=== PATIENT | male | born 1960 | race Caucasian/White ===

== ENCOUNTER 2022-03-30 12:24 | Emergency (ER) | payer MEDICAID ==
[~2022-03-30] VITALS: Ht 175.3 cm; Wt 88.0 kg
[2022-03-30 13:19] VITALS: BP 157/101
[2022-03-30] MEDS ORDERED: LIDOCAINE HCL/PF 1% 10 MG/ML 5ML VIAL INFIL ONE (15:00)
[2022-03-30] MEDS ORDERED: BACITRACIN ZINC OINT UDPKT TOP ONE ×2 (15:00)
[2022-03-30] MEDS ORDERED: ACETAMINOPHEN 325MG TABLET PO ONE (15:00)
[2022-03-30] MEDS ORDERED: WATER FOR IRRIGATION,STERILE 500 ML IRRIG.SOLN IR ONE (15:00)
[2022-03-30] MEDS ORDERED: TETANUS, DIPHTHERIA, PERTUSSIS VAC/PF 0.5ML (>10YR OLD) IM ONE (15:00)
[2022-03-30] MEDS ORDERED: ACET-2708 MT (17:58)
[2022-03-30] MEDS ORDERED: CEPH500T MT (17:58)
[2022-03-30] MEDS ORDERED: CEFTRIAXONE SODIUM 1 G/VIAL IM ONE (18:00)
== END 2022-03-30 18:54 | disposition home or self-care (01) ==
LOC: ER 12:24
DX: S62.630B Displaced fracture of distal phalanx of right index finger, initial encounter for open fracture (principal); I10 Essential (primary) hypertension; W29.3XXA Contact with powered garden and outdoor hand tools and machinery, initial encounter; Y93.89 Activity, other specified; Y92.89 Other specified places as the place of occurrence of the external cause
CPT/HCPCS: 12001; 73140; 90471; 90715; 96372; 99284; J0696; Z7610